=== PATIENT | male | born 1990 | race Caucasian/White ===

== ENCOUNTER 2022-04-05 18:46 | Emergency (ER) | payer SELFPAY ==
[~2022-04-05] VITALS: Ht 177.8 cm; Wt 79.4 kg
[2022-04-05 18:49] VITALS: BP 117/69
[2022-04-05] MEDS ORDERED: KETOROLAC 60 MG/2 ML VIAL IM ONE (19:05)
--- NOTE | 2022-04-05 19:06 | NUR ---
XRAY AT BEDSIDE
[2022-04-05 19:17] VITALS: BP 117/69
--- NOTE | 2022-04-05 19:50 | NUR ---
31 Y/O M PRESENTS WITH L FOOT PAIN 11/20 TODAY. PT STATED WHILE AT WORK A TABLE FELL ON HIS FOOT, PAIN INTENSIFIED WHEN WALKING. PT DENIES PAIN RADIATING, NVD. SKIN INTACT, A&OX4. PMH-PT DENIES NKA
[2022-04-05] MEDS ORDERED: IBUP-2213 PO (20:18)
--- NOTE | 2022-04-05 20:30 | NUR ---
Patient discharged with v/s stable. Written and verbal after care instructions given and explained. Patient alert, oriented and verbalized understanding of instructions. Ambulatory with steady gait. All questions addressed prior to discharge. ID band removed. Patient advised to follow up with PMD. Rx of IBUPROFEN given. Opportunity to ask questions provided and answered.
--- NOTE | 2022-04-05 20:34 | NUR ---
PT TOLERATED CRUTCHES WELL. DEMO CORRECT BODY MECH. SHYLA WRAP APPLIED TO L FOOT. GOOD ROM AND CAP REFILL. NO SWELLING NOTED
--- NOTE | 2022-04-05 20:44 | NUR ---
The patient's care was reviewed and supervised by Supriya Arreola RN.
== END 2022-04-05 20:30 | disposition home or self-care (01) ==
LOC: MED 18:46
DX: S90.32XA Contusion of left foot, initial encounter (principal); F17.200 Nicotine dependence, unspecified, uncomplicated; Z79.1 Long term (current) use of non-steroidal anti-inflammatories (NSAID); W20.8XXA Other cause of strike by thrown, projected or falling object, initial encounter; Y93.89 Activity, other specified; Y92.89 Other specified places as the place of occurrence of the external cause; Y99.0 Civilian activity done for income or pay
CPT/HCPCS: 73630; 96372; 99283; J1885; Q0092

== ENCOUNTER 2022-06-19 11:45 | Emergency (ER) | payer SELFPAY ==
[~2022-06-19] VITALS: Ht 177.8 cm; Wt 65.8 kg
[~2022-06-19 11:45] MED LIST: IBUP-2213 PO
[2022-06-19 11:50] VITALS: BP 125/87
[2022-06-19] MEDS ORDERED: BACITRACIN OINT 500 UNITS/GM PKT TP ONE (12:20)
--- NOTE | 2022-06-19 12:30 | NUR ---
1225 PTS FOREHEAD CLEANED W/ 4X4 GAUZE AND NS SOLUTION. PT THEN DRESSED W/ BANDAID.
[2022-06-19] MEDS ORDERED: BACI-416 TP (12:34)
[2022-06-19 12:41] VITALS: BP 122/67
--- NOTE | 2022-06-19 12:42 | NUR ---
PATIENT BIB [employer]. PATIENT EXAMINED BY . PATIENT MEDICALLY CLEARED AND RELEASED IN CUSTODY IN STABLE CONDITION. ORIGINAL PRE-BOOK FORM GIVEN TO OFFICER.
== END 2022-06-19 12:41 | disposition home or self-care (01) ==
LOC: MED 11:45
DX: S00.81XA Abrasion of other part of head, initial encounter (principal); M25.551 Pain in right hip; Z79.1 Long term (current) use of non-steroidal anti-inflammatories (NSAID); X78.9XXA Intentional self-harm by unspecified sharp object, initial encounter; Y93.89 Activity, other specified; Y92.89 Other specified places as the place of occurrence of the external cause; Y99.8 Other external cause status
CPT/HCPCS: 90471; 90715; 99283